=== PATIENT | female | born 1985 | race Caucasian/White ===

== ENCOUNTER 2019-10-12 14:14 | Observation (INO) | payer MEDICAID ==
[2019-10-12] VITALS (7 sets, daily range): BP systolic 99–167; BP diastolic 69–102; PULSE 51–77; TEMP 96.9–98.5
[~2019-10-12] VITALS: Ht 154.9 cm; Wt 67.7 kg
[2019-10-12] MEDS ORDERED: FOSAMAX 70MG TA70 MG PO (17:25)
[2019-10-12] MEDS ORDERED: CALCIUM 600MG+D1 TAB PO (17:27)
[2019-10-12] MEDS ORDERED: DEBROX OT (17:28)
[2019-10-12] MEDS ORDERED: LUNESTA2 MG PO (17:29)
[2019-10-12] MEDS ORDERED: LAMICTAL200 MG PO ×2 (17:31→17:32)
[2019-10-12] MEDS ORDERED: PHENERGAN25 MG RC (17:36)
[2019-10-12] MEDS ORDERED: PHENOBARBITAL32.4 MG PO (17:36)
[2019-10-12] MEDS ORDERED: D3-5050000 IU PO (17:38)
[2019-10-12] MEDS ORDERED: ABILIFY 10MG TA10 MG PO (17:39)
[2019-10-12] MEDS ORDERED: PRILOSEC 20MG20 MG PO (17:40)
--- NOTE | 2019-10-12 19:54 | NUR ---
Report from [facility] in [place]. Patient awake & alert to room 347. Her supportive mother at bedside. Vitals stable. Patient tolerated sips of water. Patient up to the bathroom & voided. Gaitbelt used. Patient mother understanding of discharge instructions, denies questions. minimal bleeding noted in patient's mouth. Patient wheeled out with all belongings.
== END 2019-10-12 20:05 | disposition home or self-care (01) ==
LOC: SDCO 14:14 → SURG 19:23
PROVIDERS: ADMIT Dentist Oral and Maxillofacial Surgery
DX: K01.1 Impacted teeth (principal); K02.7 Dental root caries; K02.9 Dental caries, unspecified; K21.9 Gastro-esophageal reflux disease without esophagitis; G80.9 Cerebral palsy, unspecified; F41.9 Anxiety disorder, unspecified; G40.409 Other generalized epilepsy and epileptic syndromes, not intractable, without status epilepticus; M81.0 Age-related osteoporosis without current pathological fracture; R62.50 Unspecified lack of expected normal physiological development in childhood; Q04.8 Other specified congenital malformations of brain; Z88.5 Allergy status to narcotic agent; Z79.899 Other long term (current) drug therapy; Z88.2 Allergy status to sulfonamides
CPT/HCPCS: J0330; J2405; J2704; J3010